=== PATIENT | female | born 1960 | race Two or more races ===

== ENCOUNTER 2022-01-12 20:09 | Emergency (ER) | payer SELFPAY ==
[2022-01-12 21:27] LABS: CARBON DIOXIDE,CO2 29.5 mmol/L (21.0-32.0)
[2022-01-12] MEDS: Morphine 4 MG/ML VIAL IVPUSH ONE (21:29)
[2022-01-12] MEDS: Sodium Chloride 0.9% 1,000 ML IV ONE (21:29)
[2022-01-12] MEDS: Ondansetron 4 MG/2 ML SDV IVPUSH ONE (21:29)
== END 2022-01-13 00:01 | disposition home or self-care (01) ==
LOC: MW.ED 20:09
DX: N13.2 Hydronephrosis with renal and ureteral calculous obstruction (principal)
CPT/HCPCS: 36415; 74176; 80053; 81001; 81025; 83690; 85025; 87086; 96361; 96374; 96375; 99284; J2270; J2405; J7030

== ENCOUNTER 2023-09-26 11:31 | Emergency (ER) | payer SELFPAY ==
[2023-09-26] MEDS: Morphine 4 MG/ML Syringe IVPUSH ONE (12:09)
[2023-09-26] MEDS: Diphtheria,Pertussis(Acell),Tetanus Vaccine 0.5 ML Syringe IM ONE (12:09)
[2023-09-26] MEDS: Propofol 200 MG/20 ML SDV IVPUSH STA ×2 (13:47→14:13)
[2023-09-26] MEDS: Lidocaine 1% 5 ML VIAL INJECT ONE (13:47)
[2023-09-26] MEDS: cefTRIAXone 1 GM in Sodium Chloride 0.9% 50 ML IV STA (13:47)
[2023-09-26] MEDS: Bacitracin Oint 1 GM U/D Packet TOP ONE (14:10)
== END 2023-09-26 16:58 | disposition home or self-care (01) ==
LOC: MW.ED 11:31
DX: S82.62XA Displaced fracture of lateral malleolus of left fibula, initial encounter for closed fracture (principal); S93.04XA Dislocation of right ankle joint, initial encounter; S93.402A Sprain of unspecified ligament of left ankle, initial encounter; Z23 Encounter for immunization; Z75.8 Other problems related to medical facilities and other health care; Z90.49 Acquired absence of other specified parts of digestive tract; W10.8XXA Fall (on) (from) other stairs and steps, initial encounter
CPT/HCPCS: 12002; 27788; 73560; 73590; 73600; 73610; 73620; 90471; 90715; 96365; 96375; 99284; J0696; J2270; J2704; J3490

== ENCOUNTER 2023-09-30 11:11 | Day surgery (SDC) | payer SELFPAY ==
[2023-09-30] MEDS ORDERED: ceFAZolin 2 GM in Sodium Chloride 0.9% 50 ML IV ONE (12:00)
[2023-09-30] MEDS: Lactated Ringers 1,000 ML IV SCH (12:00)
[2023-09-30] MEDS ORDERED: Propofol 200 MG/20 ML SDV ONE (12:03)
[2023-09-30] MEDS ORDERED: dexmedeTOMIDine HCl 200 MCG/2 ML SDV ONE (12:03)
[2023-09-30] MEDS ORDERED: Ketamine HCL/NACL, ISO-OSM 50 MG/5 ML Syringe ONE (12:03)
[2023-09-30] MEDS ORDERED: fentaNYL 100 MCG/2 ML SDV ONE (12:03)
[2023-09-30] MEDS ORDERED: Ondansetron 4 MG/2 ML SDV ONE (12:05)
[2023-09-30] MEDS ORDERED: Ketorolac 30 MG/ML SDV ONE (12:05)
[2023-09-30] MEDS ORDERED: Dexamethasone 4 MG/ML 5 ML MDV ONE (12:05)
[2023-09-30] MEDS ORDERED: Bupivacaine 0.5% 30 ML SDV ONE (12:12)
[2023-09-30] MEDS ORDERED: Phenylephrine HCl In 0.9% NaCl 1 MG/10 ML Syringe ONE (12:25)
[2023-09-30] MEDS ORDERED: HYDROmorphone 2 MG/ML Syringe ONE (12:58)
== END 2023-09-30 16:00 | disposition home or self-care (01) ==
LOC: MW.SDS 11:11
PROVIDERS: ATTEND Orthopaedic Surgery
DX: S82.61XA Displaced fracture of lateral malleolus of right fibula, initial encounter for closed fracture (principal); S91.011A Laceration without foreign body, right ankle, initial encounter; F32.A Depression, unspecified; I10 Essential (primary) hypertension; E66.9 Obesity, unspecified; W18.30XA Fall on same level, unspecified, initial encounter
CPT/HCPCS: 12001; 27792; 76000; C1713; J0131; J0665; J1100; J1170; J1885; J2405; J2704; J3010; J7120; 01480; J3490

== ENCOUNTER 2025-05-18 12:49 | Emergency (ER) | payer SELFPAY ==
[2025-05-18] MEDS: Sodium Chloride 0.9% 2.5 ML Syringe FLUSH PRN (13:11)
[2025-05-18] MEDS: Sodium Chloride 0.9% 10 ML Syringe FLUSH PRN (13:11)
[2025-05-18 13:30] LABS: BASOPHILS ABSOLUTE AUTO 0.05 K/uL (0.00-0.20); BASOPHILS PERCENT AUTO 0.5 % (0.0-1.0); EOSINOPHILS ABSOLUTE AUTO 0.23 K/uL (0.00-0.45); EOSINOPHILS PERCENT AUTO 2.3 % (0.0-6.0); IMMATURE GRAN ABSOLUTE AUTO 0.01 K/uL (0.00-0.05); IMMATURE GRAN PERCENT AUTO 0.1 % (0.0-0.4); LYMPHOCYTES ABSOLUTE AUTO 4.90 K/uL (1.00-4.80); LYMPHOCYTES PERCENT AUTO 49.4 % (24.0-44.0); MEAN PLATELET VOLUME 11.4 fL (9.4-12.3); MONOCYTES ABSOLUTE AUTO 0.58 K/uL (0.00-0.80); MONOCYTES PERCENT AUTO 5.8 % (0.0-8.0); NEUTROPHILS ABSOLUTE AUTO 4.15 K/uL (1.80-7.70); NEUTROPHILS PERCENT AUTO 41.9 % (41.0-71.0); NRBC ABSOLUTE 0.00 K/uL (0.00-0.02); NRBC PERCENT 0.0 /100WBC (0.0-0.2); PLATELET COUNT,PLT 253 K/uL (150-400); RED BLOOD CELL COUNT 5.19 M/uL (4.10-5.30); WHITE BLOOD CELL COUNT,WBC 9.92 K/uL (3.9-11.3)
[2025-05-18 14:35] LABS: A/G RATIO 0.9 (0.9-1.6); ALANINE AMINOTRANSFERASE,ALT 28.0 IU/L (14-63); ASPARTATE AMNIOTRANSFERASE,AST 26.0 IU/L (15-37); BILIRUBIN TOTAL 0.4 mg/dL (0.2-1.0); BLOOD UREA NITROGEN,BUN 16.0 mg/dL (7.0-18.0); CARBON DIOXIDE,CO2 27.9 mmol/L (21.0-32.0); CHLORIDE,CL 105.0 mmol/L (98-107); CREATININE 0.8 mg/dL (0.6-1.0); EST CRCL DRUG DOSING (CG) 68.26 mL/min; GLUCOSE RANDOM 96.0 mg/dL (74-106); POTASSIUM,K 4.2 mmol/L (3.5-5.1); PRO B-TYPE NATRIUR PEPT,BNPPRO 235.0 pg/mL (0-125); PROTEIN TOTAL,TP 7.6 g/dL (6.4-8.2); SODIUM,NA 139.0 mmol/L (136-145)
[2025-05-18 14:37] LABS: INR 1.03 (0.86-1.11)
[2025-05-18 14:40] LABS: ESTIMATED GFR 83.0 mL/min (>60)
[2025-05-18 15:37] LABS: CHOLESTEROL HDL 59.0 mg/dL (40-60); CHOLESTEROL LDL CALCULATED 106.0 mg/dL (60-180); CHOLESTEROL TOTAL 179.0 mg/dL (50-200); VLDL CHOLESTEROL 14.0 mg/dL (5-55)
[2025-05-18] MEDS ORDERED: Furosemide 40 MG/4 ML VIAL IVPUSH ONE (17:13)
== END 2025-05-18 20:51 ==
LOC: MW.ED 12:49
DX: I21.4 Non-ST elevation (NSTEMI) myocardial infarction (principal); I47.10 Supraventricular tachycardia, unspecified; I24.89 Other forms of acute ischemic heart disease; R79.89 Other specified abnormal findings of blood chemistry; Z90.49 Acquired absence of other specified parts of digestive tract
CPT/HCPCS: 36415; 71045; 80053; 80061; 83690; 83735; 83880; 84484; 85025; 85610; 93005; 96361; 96374; 99285; A9270; J0153; J7030; 93010